=== PATIENT | female | born 1960 | race Caucasian/White ===

== ENCOUNTER 2022-05-25 17:59 | Inpatient (IN) | payer OTHER ==
[~2022-05-25] VITALS: Ht 151.1 cm; Wt 55.3 kg
[2022-05-25 18:16] VITALS: BP 132/70
[2022-05-25] MEDS ORDERED: METOCLOPRAMIDE 10 MG TAB PO ONE (19:05)
[2022-05-25] MEDS ORDERED: METOCLOPRAMIDE 10 MG/2 ML INJ VIAL IVP ONE (19:20)
[2022-05-25] MEDS ORDERED: GLUCAGON 1 MG VIAL IVP ONE (19:20)
--- NOTE | 2022-05-25 19:22 | NUR ---
PT TAKEN TO BED 9
--- NOTE | 2022-05-25 19:44 | NUR ---
LAB AT BEDSIDE
--- NOTE | 2022-05-25 19:47 | NUR ---
62 YO F BIB SELF WITH C/C OF THROAT DISCOMFORT S/P CHOKING ON A PIECE OF FOOD EARLIER TODAY. PT STATES THE MEAT SHE HAD EATEN WAS A BIT DRY AND FEELS SHE WASNT ABLE TO PASS IT. PT DENIES SOB. PT STATES SHE FEEL ANXIOUS D/T THE FEELING OF HAVING SOMETHING STUCK. DENIES HX, RX AND ALLERGIES
--- NOTE | 2022-05-25 19:53 | NUR ---
PT AMBULATED TO RR AND BACK TO BED
[2022-05-25 19:56] LABS: BASOPHILS % (AUTO) 0.4 % (0.0-2.0); EOSINOPHILS # (AUTO) 0.1 K/uL (0-0.4); EOSINOPHILS % (AUTO) 0.8 % (0.0-4.0); HEMATOCRIT 37.5 % (36-48); HEMOGLOBIN 12.5 g/dL (12.0-16.0); LYMPHOCYTES # (AUTO) 2.1 K/uL (2.5-16.5); MEAN CORPUSCULAR HEMOGLOBIN 30 pg (27-31); MEAN CORPUSCULAR HGB CONC 33 g/dL (33-37); MEAN CORPUSCULAR VOLUME 90.6 fL (80-94); MONOCYTES # (AUTO) 0.5 K/uL (0.8-1.0); MONOCYTES % (AUTO) 6.5 % (1.7-9.3); NEUTROPHILS # (AUTO) 5.6 K/uL (1.8-7.7); NEUTROPHILS % (AUTO) 67.3 % (42.2-75.2); PLATELET COUNT (AUTO) 334 K/uL (140-450); RED BLOOD CELL COUNT(AUTO) 4.14 MIL/uL (4.20-5.40); RED CELL DISTRIBUTION WIDTH 14.6 % (11.6-13.7); WHITE BLOOD COUNT (AUTO) 8.3 K/uL (4.8-10.8)
--- NOTE | 2022-05-25 20:02 | NUR ---
PT TAKEN TO XRAY
--- NOTE | 2022-05-25 20:08 | NUR ---
PT RETURN FROM XRAY
[2022-05-25 20:11] LABS: ALBUMIN 3.6 g/dL (3.4-5.0); ANION GAP 14.2 (8-16); CARBON DIOXIDE 24.4 mmol/L (21-32); CREATININE 0.7 mg/dL (0.6-1.3); POTASSIUM 3.6 mmol/L (3.5-5.1); TOTAL BILIRUBIN 0.2 mg/dL (0.0-1.0)
--- NOTE | 2022-05-25 20:28 | NUR ---
JAVON COBB AT BEDSIDE
--- NOTE | 2022-05-25 20:36 | NUR ---
PT AMBULATED TO AND BACK TO BED.
--- NOTE | 2022-05-25 21:03 | NUR ---
Dr. Allen examining patient.
--- NOTE | 2022-05-25 21:11 | NUR ---
NO WOUNDS. NO MEDS. MED RECON COMPLETED. JONATHAN COLLECTED TAKEN TO LAB.
[2022-05-25] MEDS ORDERED: ACETAMINOPHEN 325 MG TAB PO PRN ×2 (21:25→21:30)
[2022-05-25] MEDS ORDERED: ONDANSETRON 4 MG/2 ML VIAL IVP PRN ×2 (21:25→21:30)
[2022-05-25] MEDS ORDERED: MORPHINE SULFATE 2 MG/ML SYR IVP PRN ×2 (21:25→21:30)
[2022-05-25] MEDS ORDERED: MAG SULF 2000 MG/WATER PREMIX 50 ML IV PRN (21:30)
[2022-05-25] MEDS ORDERED: POTASSIUM CHLORIDE 10 MEQ TABER PO PRN (21:30)
[2022-05-25] MEDS ORDERED: DOCUSATE SODIUM 100 MG GELCAP PO PRN (21:30)
[2022-05-25] MEDS ORDERED: ZOLPIDEM 10 MG TAB PO PRN (21:30)
--- NOTE | 2022-05-25 22:03 | NUR ---
REPORT GIVEN TO MARYLOU HURT. [id number]
--- NOTE | 2022-05-25 22:05 | NUR ---
Patient will be admitted to care of [facility]. Admited to . Will go to [id number]. Belongings list completed. Report to MARYLOU ARNOLD.
[2022-05-25 22:10] VITALS: BP 111/67
--- NOTE | 2022-05-25 22:30 | NUR ---
PT ARRIVED VIA WHEELCHAIR. PT AMBULATED TO BED WITH STEADY GAIT. RECEIVED REPORT FROM ER NURSE, PT A&O X 4, SUDANESE SPEAKING. ON ROOM AIR, BREATHING EQUAL AND UNLABORED, NO DISTRESS NOTED. NO COMPLAINS OF PAIN. IV ON L AC G22,SALINE LOCKED. SKIN WARM, DRY AND INTACT.MRSA SWAB DONE.ORIENTED TO ROOM AND CALL LIGHT, VITAL SIGNS STABLE. NO COMPLAINS OF PAIN. ALL PRECAUTIONS IN PLACE. CALL LIGHT WITHIN REACH. WILL CONTINUE TO MONITOR.
--- NOTE | 2022-05-26 00:42 | NUR ---
PT ASLEEP ON BED, BREATHING EQUAL AND UNLABORED, NO DISTRESS NOTED. ALL PRECAUTIONS IN PLACE. WILL CONTINUE TO MONITOR.
[2022-05-26 05:46] LABS: BASOPHILS % (AUTO) 0.3 % (0.0-2.0); EOSINOPHILS # (AUTO) 0.1 K/uL (0-0.4); HEMATOCRIT 35.8 % (36-48); LYMPHOCYTES # (AUTO) 1.9 K/uL (2.5-16.5); LYMPHOCYTES % (AUTO) 24.8 % (20.5-51.1); MEAN CORPUSCULAR HEMOGLOBIN 30 pg (27-31); MEAN CORPUSCULAR HGB CONC 34 g/dL (33-37); MEAN CORPUSCULAR VOLUME 90.3 fL (80-94); MONOCYTES # (AUTO) 0.5 K/uL (0.8-1.0); MONOCYTES % (AUTO) 6.8 % (1.7-9.3); NEUTROPHILS % (AUTO) 66.1 % (42.2-75.2); PLATELET COUNT (AUTO) 316 K/uL (140-450); RED BLOOD CELL COUNT(AUTO) 3.96 MIL/uL (4.20-5.40); RED CELL DISTRIBUTION WIDTH 14.4 % (11.6-13.7); WHITE BLOOD COUNT (AUTO) 7.6 K/uL (4.8-10.8)
--- NOTE | 2022-05-26 05:49 | NUR ---
PT ASLEEP ON BED, BREATHING EQUAL AND UNLABORED, NO DISTRESS NOTED. ALL PRECAUTIONS IN PLACE. WILL CONTINUE TO MONITOR.
--- NOTE | 2022-05-26 06:42 | NUR ---
PT IS STABLE. NO ACUTE THROUGHOUT THE NIGHT. NO S/SX OF DISTRESS. ALL NEEDS ATTENDED. NO COMPLAINS OF PAIN AT THIS MOMENT. ALL PRECAUTIONS IN PLACE. CALL LIGHT WITHIN REACH. WILL ENDORSE TO AM SHIFT NURSE.
[2022-05-26 06:54] LABS: CARBON DIOXIDE 23.5 mmol/L (21-32); CREATININE 0.6 mg/dL (0.6-1.3); POTASSIUM 3.5 mmol/L (3.5-5.1)
--- NOTE | 2022-05-26 07:35 | NUR ---
08\16\22 0800 PT AWAKE DISCUSSED PLAN OF CARE.[id number]
[2022-05-26 08:00] VITALS: BP 114/64
[2022-05-26] MEDS ORDERED: fentaNYL citrate 0.05 MG/ML VIAL ONE ×2 (08:06)
[2022-05-26] MEDS ORDERED: MIDAZOLAM 5 MG/5 ML VIAL ONE (08:07)
--- NOTE | 2022-05-26 09:13 | NUR ---
PATIENT HAS BEEN SCREENED AND CATEGORIZED LOW NUTRITION RISK. PATIENT WILL BE SEEN WITHIN 7 DAYS OF ADMISSION. 06/01/22 REVIEWED BY MARIANA RODRIGUEZ RD
--- NOTE | 2022-05-26 10:38 | NUR ---
PT HAD THE EGD AND THE FINDING IS GASTRITIS AND HIATAL HERNIA , [id number]
[2022-05-26] MEDS ORDERED: fentaNYL citrate 0.05 MG/ML VIAL IVP ONE (11:15)
[2022-05-26] MEDS ORDERED: MIDAZOLAM 2 MG/2 ML VIAL IVP ONE (11:15)
[2022-05-26 16:00] VITALS: BP 129/69
--- NOTE | 2022-05-26 19:23 | NUR ---
RECEIVED ENDORSEMENT FROM DAY SHIFT NURSE FOR CONTINUITY OF PT CARE. PT IS AWAKE/ALERT/ORIENTED X 4, ABLE TO VERBALIZED NEEDS. RESPIRATION EVEN AND REGULAR. NO SOB OR DISTRESS. PT DENIED OF PAIN, CHEST PAIN, HEADACHE OR DIZZINESS. PT ALSO DENIED OF NAUSEA OR VOMITING. SALINE LOCK INTACT AND PATENT ON RIGHT FOREARM 22G. PT IS ON STABLE CONDITION. CONTINUE TO MONITOR.
--- NOTE | 2022-05-26 20:00 | NUR ---
PT CONSUMED 100% OF DINNER.
--- NOTE | 2022-05-26 20:30 | NUR ---
PT IS AMBULATING TO RESTROOM INDEPENDENTLY WITH STEADY GAIT.
--- NOTE | 2022-05-27 01:15 | NUR ---
PT IS ASLEEP. NO FACIAL GRIMACING. NO SOB OR DISTRESS.
[2022-05-27 05:43] LABS: BASOPHILS % (AUTO) 0.2 % (0.0-2.0); EOSINOPHILS # (AUTO) 0.1 K/uL (0-0.4); EOSINOPHILS % (AUTO) 1.8 % (0.0-4.0); HEMATOCRIT 35.9 % (36-48); HEMOGLOBIN 11.9 g/dL (12.0-16.0); LYMPHOCYTES # (AUTO) 1.9 K/uL (2.5-16.5); LYMPHOCYTES % (AUTO) 25.9 % (20.5-51.1); MEAN CORPUSCULAR HEMOGLOBIN 30 pg (27-31); MEAN CORPUSCULAR HGB CONC 33 g/dL (33-37); MEAN CORPUSCULAR VOLUME 90.6 fL (80-94); MONOCYTES # (AUTO) 0.5 K/uL (0.8-1.0); MONOCYTES % (AUTO) 6.6 % (1.7-9.3); NEUTROPHILS # (AUTO) 4.8 K/uL (1.8-7.7); NEUTROPHILS % (AUTO) 65.5 % (42.2-75.2); PLATELET COUNT (AUTO) 321 K/uL (140-450); RED BLOOD CELL COUNT(AUTO) 3.96 MIL/uL (4.20-5.40); RED CELL DISTRIBUTION WIDTH 14.5 % (11.6-13.7); WHITE BLOOD COUNT (AUTO) 7.4 K/uL (4.8-10.8)
[2022-05-27 05:53] LABS: ANION GAP 13.2 (8-16); CARBON DIOXIDE 23.4 mmol/L (21-32); CREATININE 0.6 mg/dL (0.6-1.3); POTASSIUM 3.6 mmol/L (3.5-5.1)
--- NOTE | 2022-05-27 07:25 | NUR ---
PT IS ON STABLE CONDITION. SLEPT WELL AT NIGHT. IV SALINE LOCK AT RIGHT FOREARM INTACT5 AND PATENT. ALL SAFETY MEASURES IN PLACE. ENDORSED TO DAY SHIFT NURSE FOR CONTINUITY OF CARE.
--- NOTE | 2022-05-27 07:30 | NUR ---
RECEIVED REPORT FROM [facility] NURSE. PT A/O X3. ABLE TO MAKE NEEDS KNOWN. NO SOB OR RESPIRATORY DISTRESS. ON RA. PT IS AMBULATORY. DENIES PAIN. NEEDS ALL MET AT THIS TIME. SAFETY MEASURES IN PLACE.
[2022-05-27 08:00] VITALS: BP 107/60
--- NOTE | 2022-05-27 09:30 | NUR ---
PT OBSERVED WITH GOOD APPETITE. COMPLETED 100% BREAKFAST. DENIES PAIN. IN NO DISTRESS. ON RA. NEEDS ALL MET AT THIS TIME. SAFETY MEASURES IN PLACE.
[2022-05-27 12:07] VITALS: BP 107/60
--- NOTE | 2022-05-27 12:27 | NUR ---
DISCHARGE INSTRUCTIONS GIVEN. IV REMOVED, CATHETER INTACT, NO ACTIVE BLEEDING.
--- NOTE | 2022-05-27 12:45 | NUR ---
PT WITH STEADY GAIT. PT WALKED OUT WITH DOUBLE HEAD MACHINE OPERATOR.
== END 2022-05-27 12:45 | disposition home or self-care (01) | DRG 395 ==
LOC: MED 17:59 → MMU 21:26 → MTU 21:54
PROVIDERS: ADMIT Family Medicine; ATTEND Family Medicine
PROC: 0DB68ZX Excision of Stomach, Via Natural or Artificial Opening Endoscopic, Diagnostic (ICD-10-PCS; 2022-05-26)
PROC: 0DB58ZX Excision of Esophagus, Via Natural or Artificial Opening Endoscopic, Diagnostic (ICD-10-PCS; 2022-05-26)
PROC: 0DB48ZX Excision of Esophagogastric Junction, Via Natural or Artificial Opening Endoscopic, Diagnostic (ICD-10-PCS; principal; 2022-05-26 09:00)
DX: T18.198A Other foreign object in esophagus causing other injury, initial encounter (principal); R13.10 Dysphagia, unspecified; X58.XXXA Exposure to other specified factors, initial encounter; Z20.822 Contact with and (suspected) exposure to COVID-19; K29.70 Gastritis, unspecified, without bleeding; K20.90 Esophagitis, unspecified without bleeding; K44.9 Diaphragmatic hernia without obstruction or gangrene; Y93.89 Activity, other specified; Y92.89 Other specified places as the place of occurrence of the external cause; Y99.8 Other external cause status
CPT/HCPCS: 36415; 70360; 80048; 80053; 83690; 83735; 85025; 87081; 88305; 88312; 88313; 88342; 96374; 96375; 99285; J1610; J1644; J2250; J2765; J3010